=== PATIENT | female | born 1980 | race Caucasian/White ===

== ENCOUNTER 2018-01-20 07:55 | Day surgery (SDC) | payer BC ==
[2018-01-20] MEDS ORDERED: Ringers Lactate 1,000 ML IV ONE (08:10)
[2018-01-20] MEDS ORDERED: OXYMETAZOLINE HCL 0.05% 30ML NAS ONE (08:10)
[2018-01-20] MEDS ORDERED: BACITRACIN OINTMENT 15 GM TUBE TOP ONE (08:18)
[2018-01-20] MEDS ORDERED: LIDOCAINE 1% W/EPI 1:100,000 MDV 50 ML VIAL ONE (08:19)
[2018-01-20] MEDS ORDERED: NA CHLORIDE 0.9% 500 ML ONE (08:25)
[2018-01-20] MEDS: OXYMETAZOLINE HCL 0.05% 30ML NAS ONE ×4 (08:30→09:20)
[2018-01-20] MEDS ORDERED: FENTANYL CITR 250 MCG/5 ML ONE (08:37)
[2018-01-20] MEDS ORDERED: MIDAZOLAM HCL 2 MG/2 ML INJ ONE (08:37)
[2018-01-20] MEDS ORDERED: ONDANSETRON 4 MG/2 ML VIAL ONE ×2 (08:37→10:10)
[2018-01-20] MEDS ORDERED: LIDOCAINE 2% MPF 5 ML VIAL ONE (08:37)
[2018-01-20] MEDS ORDERED: PROPOFOL 200 MG/20 ML VIAL IV ONE (08:37)
[2018-01-20] MEDS ORDERED: ROCURONIUM 50 MG/5 ML VIAL IV ONE (08:37)
[2018-01-20] MEDS ORDERED: DEXAMETHASONE 10 MG/ML VIAL ONE (09:18)
--- NOTE | 2018-01-20 09:56 | P.BOP ---
Preoperative diagnosis: septal deviation, turb hypertrophy Postoperative diagnosis: same Primary procedure: septoplasty Secondary procedure: submucous resection B IT Estimated blood loss: 15ml Specimen: none Anesthesia: General Complications: None Fluids & blood products: crystalloid 700ml Transferred to: Recovery Room Condition: Good
[2018-01-20] MEDS ORDERED: MEPERIDINE HCL 50 MG/ML AMP ONE (10:09)
[2018-01-20] MEDS ORDERED: HYDROCODONE/APAP 5/325 MG TAB ONE (10:53)
--- NOTE | 2018-01-21 21:37 | OP ---
Date of Procedure: 01/20/2018 Surgeon: Myah Graham MD Preoperative Diagnoses: Septal deviation, inferior turbinate hypertrophy, nasal obstruction. Postoperative Diagnoses: Septal deviation, inferior turbinate hypertrophy, nasal obstruction. Procedure: Septoplasty and submucous resection of bilateral inferior. Indication For Procedure: Ms. Younger presented to the [facility] with longstanding complaints of le ft nasal obstruction and found to have left septal deviation and bilateral turbinate hypertrophy. Th e risks, benefits, and alternatives to the procedure were discussed with the patient who agreed to pr oceed. Description Of Procedure: The patient was brought to the operating room. She was placed under gener al anesthesia via oral endotracheal tube. The head of bed was turned 90 degrees and the septum was i njected with 1% lidocaine with epinephrine. The nasal cavity was packed with Afrin-soaked pledgets. After time for effect, these pledgets were removed and a left jessica-transfixion incision was made thr ough the mucosa. The caudal edge of the septal cartilage was identified and bilateral mucoperichondr ial flaps were elevated using a Mohave elevator. The caudal aspect of the septum was approximately m idline. The posterior cartilaginous septum was incised using a 15-blade scalpel and a small portion of the cartilage was removed. The bony portion of the nasal septum was then removed using a Angel r ongeurs. Removal of the bony partition allowed improvement in the placement of the septum. Addition al dissection and elevation of the mucoperiosteal flap were then developed over a left septal spur. The bone was trimmed and the spur was removed. This resulted in significant improvement in the left nasal airway. The mucosal flaps were then secured using a quilting stitch on a 5-0 plain suture with a small Chau needle. The hemitransfixion incision was closed using a 5-0 chromic suture. Attentio n was then turned to the inferior turbinates. The head of the inferior turbinate was injected with a small amount of 1% lidocaine with epinephrine. After time for effect, a small stab incision was mad e through the mucosa and a Trudy elevator was used to elevate the mucosa off the bone of the turbina te. The microdebrider fitted with the inferior turbinate blade was used to remove a portion of the s ubmucosal tissue in order to reduce the overall size of the turbinates and improve the airway. Afrin -soaked pledgets were applied for several minutes to aid in hemostasis. These were removed. The halina al airway was inspected and appeared to have minimal bleeding. The nasopharynx and oral cavity were suctioned and the patient was returned to care of anesthesia for awakening and extubation in the oper ating room. The patient was transported to the recovery room in stable condition and will be [facility] home later today and follow up with Dr. Graham in 10-12 days for further evaluation. LINDA/FERMIN Voice ID: [id number] Report ID: [id number]
== END 2018-01-20 11:50 | disposition home or self-care (01) ==
LOC: OR 07:55
PROVIDERS: ATTEND Otolaryngology
PROC: 09TL8ZZ Resection of Nasal Turbinate, Via Natural or Artificial Opening Endoscopic (ICD-10-PCS; 2018-01-20)
PROC: 09BM8ZZ Excision of Nasal Septum, Via Natural or Artificial Opening Endoscopic (ICD-10-PCS; principal; 2018-01-20 09:15)
DX: J34.2 Deviated nasal septum (principal); J34.3 Hypertrophy of nasal turbinates; J30.9 Allergic rhinitis, unspecified; R09.81 Nasal congestion; E03.9 Hypothyroidism, unspecified; Z88.2 Allergy status to sulfonamides; Z88.8 Allergy status to other drugs, medicaments and biological substances; Z83.3 Family history of diabetes mellitus
CPT/HCPCS: 81025; J1100; J2175; J2250; J2405